=== PATIENT | male | born 1990 | race Caucasian/White ===

== ENCOUNTER 2018-07-12 09:32 | Emergency (ER) | payer BC ==
[2018-07-12 10:03] LABS: Rapid Strep Molecular Negative (Negative)
[2018-07-12 11:27] VITALS: BP 159/98
--- NOTE | 2018-07-12 12:44 | ED ---
Throat Pain/Nasal Congestion - HPI Summary HPI Summary: patient is a 28-year-old otherwise healthy male presenting to the ED with a few hour history of enlarged uvula. He states he was coughing overnight and possibly was snoring more frequently and laterally than usual as he was unable to get comfortable. He started feeling some swelling in the back of his throat. He notices uvula was swollen and was resting on the back of his tongue. He denies any dysphagia or odynophagia. Denies any difficulty with breathing. No stridor, drooling, muffled voice and symptoms are not worse with recumbency position. Immunizations have been up-to-date. - History of Current Complaint Chief Complaint: EDThroatPain Time Seen by Provider: 07/12/18 10:44 Hx Obtained From: Patient Onset/Duration: Sudden Onset Severity: Mild Associated Signs And Symptoms: Positive: Negative - Epiglottits Risk Factors Epiglottis Risk Factors: Negative - Allergies/Home Medications Allergies/Adverse Reactions: Allergies Allergy/AdvReac Type Severity Reaction Status Date / Time No Known Allergies Allergy Verified 07/12/18 11:25 PMH/Surg Hx/FS Hx/Imm Hx Previously Healthy: Yes - Immunization History Hx Pertussis Vaccination: No Immunizations Up to Date: Yes Infectious Disease History: No Infectious Disease History: Denies: Traveled Outside the [place] in Last 30 Days - Social History Occupation: Employed Full-time Lives: With Family Alcohol Use: None Hx Substance Use: No Substance Use Type: Reports: None Smoking Status (MU): Never Smoked Tobacco Review of Systems Constitutional: Negative Negative: Fever, Chills, Fatigue, Skin Diaphoresis ENT: Other - enlarged uvula Negative: Palpitations, Chest Pain Negative: Shortness Of Breath, Cough Genitourinary: Negative Positive: no symptoms reported, see HPI Negative: Arthralgia, Myalgia Skin: Negative Neurological: Negative All Other Systems Reviewed And Are Negative: Yes Physical Exam Triage Information Reviewed: Yes Vital Signs On Initial Exam: Initial Vitals Temp Pulse Resp BP Pulse Ox 97.3 F 71 18 164/96 98 07/12/18 09:38 07/12/18 09:38 07/12/18 09:38 07/12/18 09:38 07/12/18 09:38 Vital Signs Reviewed: Yes Appearance: Positive: Well-Appearing, Well-Nourished Skin: Positive: Warm, Skin Color Reflects Adequate Perfusion Head/Face: Positive: Normal Head/Face Inspection Eyes: Positive: EOMI, Conjunctiva Clear ENT: Positive: Other - uvula enlarged - midline Neck: Positive: Supple, No Lymphadenopathy Respiratory/Lung Sounds: Positive: Clear to Auscultation, Breath Sounds Present Cardiovascular: Positive: RRR, Pulses are Symmetrical in both Upper and Lower Extremities Musculoskeletal: Positive: Normal, Strength/ROM Intact Neurological: Positive: Speech Normal Psychiatric: Positive: Affect/Mood Appropriate Diagnostics - Vital Signs Vital Signs Temp Pulse Resp BP Pulse Ox 07/12/18 11:26 97.8 F 69 16 159/98 97 07/12/18 09:38 97.3 F 71 18 164/96 98 - Laboratory Lab Results: Lab Results 07/12/18 Range/Units 09:41 Group A Strep Rapid Negative (Negative) Lab Statement: Any lab studies that have been ordered have been reviewed, and results considered in the medical decision making process. EENT Course/Dx - Course Course Of Treatment: On physical examination, patient has an enlarged uvula with no posterior pharyngeal erythema or swelling. No enlarged bilateral tonsils. The patient is swallowing well. Eating and drinking okay. Discussed treatment options with the patient. Patient will be diagnosed with uvulitis. He is given a prescription for prednisone and is encouraged ibuprofen. Strep swab obtained and was negative. - Diagnoses Provider Diagnoses: Uvulitis Discharge - Sign-Out/Discharge Documenting (check all that apply): Patient Departure Patient Received Moderate/Deep Sedation with Procedure: No - Discharge Plan Condition: Stable Disposition: HOME Prescriptions: predniSONE TAB* [Deltasone TAB*] 50 mg PO DAILY #4 tab MDD 1 Patient Education Materials: Uvulitis (ED) Referrals: No Primary Care Phys,NOPCP [Primary Care Provider] - Additional Instructions: Prednisone once daily x 4 days Ibuprofen may help Ice and cold food/drinks may help with symptoms - Billing Disposition and Condition Condition: STABLE Disposition: Home
== END 2018-07-12 11:26 | disposition home or self-care (01) ==
LOC: ED 09:32
DX: K12.2 Cellulitis and abscess of mouth (principal)
CPT/HCPCS: 87651; 99281